=== PATIENT | male | born 1985 ===

== ENCOUNTER 2018-07-30 15:24 | Emergency (ER) | payer OTHER ==
[2018-07-30 15:45] VITALS: BP 117/70; PULSE 82; RESP 18; TEMP 98.2; O2SAT 98
[2018-07-30] MEDS ORDERED: cefTRIAXone (Rocephin) 250 mg Inj IM STA (17:00)
--- NOTE | 2018-07-30 17:57 | ED PDOC ---
HPI: General Adult Time Seen by Provider: 07/30/18 16:45 Chief Complaint (Nursing): Psychiatric Evaluation Chief Complaint (Provider): POSS EXPOSURE TO STD History Per: Patient History/Exam Limitations: no limitations Onset/Duration Of Symptoms: Days (1x week) Current Symptoms Are (Timing): Still Present Severity: Moderate Additional Complaint(s): 33 year old male with no past medical history presents to the ED for prophylaxis. Patient states that 1x week ago, he met a friend and had unprotected sex with her. Patient states that his friend called him a few days later stating that she had some type of illness, and that the patient should get checked out. Patient has been experiencing anxiety since then due to nerves. Patient denies having nausea, vomiting, abdominal pain, urinary symptoms, penile discharge, rashes, burning sensation with urination, or taking any medications at home. PMD: None provided. Past Medical History Reviewed: Historical Data, Nursing Documentation, Vital Signs Vital Signs: Last Vital Signs Temp 98.2 F 07/30/18 15:39 Pulse 82 07/30/18 15:39 Resp 18 07/30/18 15:39 BP 117/70 07/30/18 15:39 Pulse Ox 98 07/30/18 15:39 VAUGHN Report Viewed: Yes - Medical History PMH: No Chronic Diseases - Surgical History Surgical History: Hernia Repair (03/2018) - Family History Family History: States: No Known Family Hx - Social History Alcohol: Occasional Drugs: Denies - Home Medications Home Medications: Ambulatory Orders Medication Instructions Recorded metroNIDAZOLE [Flagyl] 500 mg PO BID #13 tab 07/30/18 - Allergies Allergies/Adverse Reactions: Allergies Allergy/AdvReac Type Severity Reaction Status Date / Time No Known Allergies Allergy Verified 07/30/18 15:39 Review of Systems ROS Statement: Except As Marked, All Systems Reviewed And Found Negative Gastrointestinal: Negative for: Nausea, Vomiting, Abdominal Pain Genitourinary Male: Negative for: Dysuria, Penile Discharge Skin: Negative for: Rash Psych: Positive for: Anxiety Physical Exam - Reviewed Nursing Documentation Reviewed: Yes Vital Signs Reviewed: Yes - Physical Exam Appears: Positive for: Well, Non-toxic, No Acute Distress Head Exam: Positive for: ATRAUMATIC, NORMOCEPHALIC Skin: Positive for: Normal Color, Warm, Dry Cardiovascular/Chest: Positive for: Regular Rate, Rhythm Respiratory: Positive for: Normal Breath Sounds Neurological/Psych: Positive for: Awake, Alert, Oriented (3x), Mood/Affect (calm and cooperative) - ECG O2 Sat by Pulse Oximetry: 98 (RA) Pulse Ox Interpretation: Normal - Progress ED Course And Treament: 1850: No further work-up needed in ED for pt at this time. Pt demonstrates no signs of allergic reaction after antibiotic administeration. Pt d/c home, to continue with flagyl for 7 days. Pt highly encouraged to repeat HIV testing in 6 months and educated on safe sex practice. Pt verbalizes underdtanding pt given referral to [facility]. Medical Decision Making Medical Decision Makin:45 Initial impression: 33 year old male with anxiety, here for prophylaxis Initial plan for course treatment: Case discussed with * rapid HIV * urine for chlamydia and gonorrhea * hepatitis b and c panel * treat prophylactically for chlamydia, gonorrhea, and trichomoniasis with rocephin 250 mg IM, zithrommax 500 mg po, and flagyl 500 mg po * reevaluation ScribeAttestation: Documented byLisa Stubbs, acting as a scribe for Jazmyn Nicole TERRITORY DEVELOPMENT MANAGER. Provider ScribeAttestation: All medical record entries made by the Scribe were at my direction and personally dictated by me. I have reviewed the chart and agree that the record accurately reflects my personal performance of the history, physical exam, medical decision making, and the department course for this patient. I have also personally directed, reviewed, and agree with the discharge instructions and disposition. Disposition - Clinical Impression Clinical Impression: Possible exposure to STD - Patient ED Disposition Is Patient to be Admitted: No Counseled Patient/Family Regarding: Diagnosis, Need For Followup, Rx Given - Disposition Referrals: [facility] [Outside] Disposition: Routine/Home Disposition Time: 18:50 Condition: GOOD Prescriptions: metroNIDAZOLE [Flagyl] 500 mg PO BID #13 tab Instructions: Condom Options, Sexually-Transmitted Diseases (DC) Print Language: SPA - POA Present On Arrival: None
[2018-07-30] MEDS ORDERED: cefTRIAXone (Rocephin) 250 mg Inj ONE (18:34)
[2018-07-30] MEDS ORDERED: Sterile Water 10 ML IV ONE (18:34)
[2018-08-01 17:17] LABS: HEPATITIS B SURFACE AG Negative (NEGATIVE)
[2018-08-01 17:22] LABS: HEPATITIS A IGM NEGATIVE (NEGATIVE); HEPATITIS B CORE AB NEGATIVE (NEGATIVE)
[2018-08-01 17:34] LABS: HEPATITIS C ANTIBODY NEGATIVE (NEGATIVE)
== END 2018-07-30 19:31 | disposition home or self-care (01) ==
LOC: H.ER 15:24
DX: Z20.2 Contact with and (suspected) exposure to infections with a predominantly sexual mode of transmission (principal); F41.9 Anxiety disorder, unspecified; Z00.8 Encounter for other general examination
CPT/HCPCS: 80074; 86592; 86703; 86706; 87390; 87491; 87591; 96372; 99283; J0696

== ENCOUNTER 2018-09-27 12:33 | Emergency (ER) | payer OTHER ==
[2018-09-27 13:10] VITALS: BP 124/70; PULSE 80; RESP 16; TEMP 98.6; O2SAT 98
--- NOTE | 2018-09-27 14:42 | ED PDOC ---
Upper Extremity Pain/Injury Time Seen by Provider: 09/27/18 13:19 Chief Complaint (Nursing): Upper Extremity Problem/Injury Chief Complaint (Provider): Upper Extremity Problem/Injury History Per: Patient History/Exam Limitations: no limitations Onset/Duration Of Symptoms: Days (x 3-4 weeks) Current Symptoms Are (Timing): Still Present Quality: "Pain" Additional Complaint(s): 33 year old male with no significant medical history presents to the ED for evaluation of bilateral arm pain for 3-4 weeks. 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 He began having pain that has since improved. Patient states he is taking Flanax (Naproxen) for pain intermittently with some relief. His last dose was 2 days ago. He continues to have mostly left sided arm discomfort. Patient further states having generalized body weakness for two weeks which improved one week ago. He is urinating normally. Denies fever and chills. PMD: none provided Past Medical History Reviewed: Historical Data, Nursing Documentation, Vital Signs Vital Signs: Last Vital Signs Temp 98.6 F 09/27/18 13:08 Pulse 80 09/27/18 13:08 Resp 16 09/27/18 13:08 BP 124/70 09/27/18 13:08 Pulse Ox 98 09/27/18 13:08 Primary Care Provider: FAMILY PROVIDER,NO - Medical History PMH: No Chronic Diseases - Surgical History Surgical History: Hernia Repair (03/2018) - Family History Family History: States: Unknown Family Hx - Immunization History Hx Tetanus Toxoid Vaccination: No Hx Influenza Vaccination: No Hx Pneumococcal Vaccination: No - Home Medications Home Medications: Ambulatory Orders Medication Instructions Recorded metroNIDAZOLE [Flagyl] 500 mg PO BID #13 tab 07/30/18 Ibuprofen [Motrin Tab] 600 mg PO Q6 PRN 7 Days tab 09/27/18 - Allergies Allergies/Adverse Reactions: Allergies Allergy/AdvReac Type Severity Reaction Status Date / Time No Known Allergies Allergy Verified 09/27/18 13:03 Review of Systems ROS Statement: Except As Marked, All Systems Reviewed And Found Negative Constitutional: Negative for: Fever, Chills Genitourinary Male: Negative for: Dysuria, Frequency, Incontinence Musculoskeletal: Positive for: Arm Pain (bilateral) Physical Exam - Reviewed Nursing Documentation Reviewed: Yes Vital Signs Reviewed: Yes - Physical Exam Appears: Positive for: Well, No Acute Distress Head Exam: Positive for: ATRAUMATIC, NORMAL INSPECTION, NORMOCEPHALIC Skin: Positive for: Normal Color, Warm, Dry Eye Exam: Positive for: EOMI, Normal appearance, PERRL ENT: Positive for: Normal ENT Inspection Pulses-Radial (L): 2+ Pulses-Radial (R): 1+ Extremity: Positive for: Normal ROM ('Normal ROM with flexion and extension of bilateral shoulders and flexion and extension of bilateral elbows and wrists ), Tenderness (mild tenderness on palpation of left lateral elbow into forearm and mild tend on palpation of superior shoulder ), Capillary Refill (< 2 seconds). Negative for: Other (tenderness on palpation of right arm and forearm) Neurological/Psych: Positive for: Awake, Alert, Normal Tone, Symmetric/Intact Strength, Oriented (x 3). Negative for: Motor/Sensory Deficits - Laboratory Results Result Diagrams: 09/27/18 14:24 09/27/18 14:24 - ECG O2 Sat by Pulse Oximetry: 98 (RA) Pulse Ox Interpretation: Normal Medical Decision Making Medical Decision Makin:53 MDM: CBC, BMP and CPK Labs wnl. Pt advised to take Ibuprofen or Naproxen fairly regularly for the next couple of days and to avoid excess activity. Stable for d/c home. Scribe Attestation: Documented by Sarita Estevez, acting as a scribe for Julia Castillo PA-C Provider Scribe Attestation: All medical record entries made by the Scribe were at my direction and personally dictated by me. I have reviewed the chart and agree that the record accurately reflects my personal performance of the history, physical exam, medical decision making, and the department course for this patient. I have also personally directed, reviewed, and agree with the discharge instructions and disposition. Disposition - Clinical Impression Clinical Impression: Muscle strain - Patient ED Disposition Is Patient to be Admitted: No Counseled Patient/Family Regarding: Studies Performed, Diagnosis, Need For Followup - Disposition Referrals: [facility] [Outside] Disposition: Routine/Home Disposition Time: 16:20 Condition: STABLE Additional Instructions: Take Ibuprofen regularly for the next 2 - 3 days to help reduce inflammation and avoid excess activity for the next couple of days. Return to ER if your symptoms worsen despite taking these measures. Prescriptions: Ibuprofen [Motrin Tab] 600 mg PO Q6 PRN 7 Days tab PRN Reason: Pain, Moderate (4-7) Instructions: Muscle Strain (DC) Forms: [employer] [facility] (Bulgarian), [facility] School/Work Excuse Print Language: TRISTANIAN
[2018-09-27 14:48] LABS: BASO # 0.1 K/uL (0.0-0.2); BASO % 1.1 % (0.0-2.0); EOS # 0.3 K/uL (0.0-0.7); EOS % 3.3 % (0.0-4.0); HEMOGLOBIN 16.2 g/dL (12.0-18.0); LYMPH # 1.2 K/uL (1.0-4.3); LYMPH % 15.6 % (20.0-40.0); MEAN CELL VOLUME 90.5 fl (80.0-94.0); MEAN CORPUSCULAR HEMOGLOBIN 31.1 pg (27.0-31.0); MEAN CORPUSCULAR HGB CONC 34.3 g/dL (33.0-37.0); MEAN PLATELET VOLUME 7.8 fl (7.2-11.7); MONO # 0.5 K/uL (0.0-0.8); MONO % 6.9 % (0.0-10.0); NEUT # 5.8 K/uL (1.8-7.0); NEUT % 73.1 % (50.0-75.0); NRBC % 0.1 % (0.0-0.0); RBC 5.2 Mil/uL (4.40-5.90); RED CELL DISTRIBUTION WIDTH 13.5 % (11.5-14.5); WHITE BLOOD COUNT 7.9 K/uL (4.8-10.8)
[2018-09-27 15:00] LABS: BLOOD UREA NITROGEN 8 mg/dl (9-20); CALCIUM 9.1 mg/dL (8.4-10.2); GFR NON-AFRICAN AMERICAN > 60
== END 2018-09-27 16:24 | disposition home or self-care (01) ==
LOC: H.ER 12:33
DX: S46.912A Strain of unspecified muscle, fascia and tendon at shoulder and upper arm level, left arm, initial encounter (principal); S46.911A Strain of unspecified muscle, fascia and tendon at shoulder and upper arm level, right arm, initial encounter